=== PATIENT | female | born 1960 | race Two or more races ===

== ENCOUNTER 2018-02-28 18:36 | Inpatient (IN) | payer OTHER ==
[~2018-02-28] VITALS: Ht 160 cm; Wt 68.9 kg
[2018-02-28] MEDS ORDERED: MORPHINE SULFATE 4 MG/ML CPJ (NOT FOR IM USE) IV STA (19:21)
[2018-02-28] MEDS ORDERED: ONDANSETRON HCL 4MG/2ML VIAL IV STA (19:21)
[2018-02-28] MEDS ORDERED: SODIUM CHLORIDE 0.9% 1000ML BAG (SEPSIS BOLUS) IV ONE (19:30)
[2018-02-28] MEDS ORDERED: PIPERACILLIN/TAZ 3.375G PREMIX 50 ML IV ONE (19:30)
[2018-02-28] MEDS ORDERED: VANCOMYCIN 1 G PREMIX 200 ML IV ONE (19:30)
[2018-02-28 19:49] LABS: BASOPHILS % 0.5 % (0.0-2.0); EOSINOPHILS % 1.9 % (0.0-5.0); HEMATOCRIT. 25.5 % (36.0-48.0); HEMOGLOBIN. 8.3 g/dL (12.0-16.0); LYMPHOCYTES % 13.2 % (20.0-50.0); MEAN CORPUSCULAR HEMOGLOBIN 25.1 pg (28.0-32.0); MEAN CORPUSCULAR VOLUME 77.1 fL (81.0-99.0); MEAN PLATELET VOLUME 7.4 fl (7.4-10.4); MONOCYTES % 8.8 % (2.0-8.0); NEUTROPHILS % 75.6 % (40.0-76.0); PLATELET 298 x1000/uL (130-400)
[2018-02-28 19:55] LABS: CHLORIDE 101 mEq/L (98-107)
[2018-02-28 19:57] LABS: PROTHROMBIN TIME 10.7 sec (9.4-11.6)
[2018-02-28 21:19] LABS: CLARITY URINE CLEAR (CLEAR); COLOR URINE YELLOW (YELLOW); KETONES URINE NEGATIVE (NEGATIVE); LEUKOCYTE ESTERASE URINE TRACE (NEGATIVE); NITRITE URINE NEGATIVE (NEGATIVE); OCCULT BLOOD URINE NEGATIVE (NEGATIVE); PROTEIN URINE NEGATIVE (NEGATIVE); SPECIFIC GRAVITY URINE 1.015 (1.005-1.030); UROBILINOGEN URINE 0.2 E.U./dL (0.2-1.0)
[2018-03-01] VITALS (7 sets, daily range): BP systolic 119–138; BP diastolic 54–66
[2018-03-01] MEDS ORDERED: CEPH500C2 PO (01:37)
[2018-03-01] MEDS ORDERED: FURO-152 MT (01:37)
[2018-03-01] MEDS ORDERED: GLIP10TA10 MT (01:37)
[2018-03-01] MEDS ORDERED: HYDROCODONE/ACETAMINOPHEN 5/325MG TABLET PO PRN (05:15)
[2018-03-01] MEDS ORDERED: ACETAMINOPHEN 325MG TABLET PO PRN (05:15)
[2018-03-01] MEDS ORDERED: DEXTROSE 50% WATER 50ML SYRINGE IV PRN (05:15)
[2018-03-01] MEDS: PIPERACILLIN/TAZ 3.375G PREMIX 50 ML IV SCH ×3 (06:09→18:14)
[2018-03-01] MEDS: BLOOD SUGAR DIAGNOSTIC STRIP TEST SCH ×4 (06:34→20:56)
[2018-03-01] MEDS: INSULIN LISPRO 100 UNITS/ML SUBCUT SCH ×4 (06:56→21:24)
[2018-03-01] MEDS: FUROSEMIDE 40MG TABLET PO SCH (08:57)
[2018-03-01] MEDS: GLIPIZIDE 10MG TABLET PO SCH ×2 (08:57→18:14)
[2018-03-01] MEDS: ENOXAPARIN 40MG/0.4ML SYR SUBCUT SCH (08:58)
[2018-03-01] MEDS ORDERED: VANCOMYCIN 750 MG PREMIX 150 ML IV SCH (10:00)
[2018-03-01] MEDS: VANCOMYCIN 750 MG PREMIX 150 ML IV SCH (20:46)
[2018-03-02] VITALS: BP 113/54
[2018-03-02] MEDS: PIPERACILLIN/TAZ 3.375G PREMIX 50 ML IV SCH ×3 (00:06→11:53)
[2018-03-02 04:10] VITALS: BP 118/42
[2018-03-02 06:18] LABS: BASOPHILS % 0.6 % (0.0-2.0); EOSINOPHILS % 4.8 % (0.0-5.0); HEMATOCRIT. 25.9 % (36.0-48.0); HEMOGLOBIN. 8.5 g/dL (12.0-16.0); LYMPHOCYTES % 23.6 % (20.0-50.0); MEAN CORPUSCULAR HEMOGLOBIN 25.2 pg (28.0-32.0); MEAN CORPUSCULAR VOLUME 76.8 fL (81.0-99.0); MEAN PLATELET VOLUME 7.3 fl (7.4-10.4); MONOCYTES % 9.5 % (2.0-8.0); NEUTROPHILS % 61.5 % (40.0-76.0); PLATELET 366 x1000/uL (130-400); RED BLOOD CELL COUNT 3.37 mill/uL (4.2-5.4); RED CELL DISTRIBUTION WIDTH 18.7 % (11.6-14.6)
[2018-03-02] MEDS: INSULIN LISPRO 100 UNITS/ML SUBCUT SCH ×2 (06:56→12:50)
[2018-03-02] MEDS: BLOOD SUGAR DIAGNOSTIC STRIP TEST SCH ×2 (06:56→12:15)
[2018-03-02 08:00] VITALS: BP 129/66
[2018-03-02] MEDS: GLIPIZIDE 10MG TABLET PO SCH (08:54)
[2018-03-02] MEDS: VANCOMYCIN 750 MG PREMIX 150 ML IV SCH (08:55)
[2018-03-02] MEDS: ENOXAPARIN 40MG/0.4ML SYR SUBCUT SCH (08:55)
[2018-03-02] MEDS: FUROSEMIDE 40MG TABLET PO SCH (09:05)
[2018-03-02 12:00] VITALS: BP 130/85
[2018-03-02 12:45] VITALS: BP 134/46
== END 2018-03-02 13:26 | disposition home or self-care (01) | DRG 720 ==
LOC: ER 18:36 → 6EST 22:14 → EDBEDREQTM 22:19 → EDBEDREQ 22:19 → ENRESERV 22:49
PROVIDERS: ADMIT Internal Medicine; ATTEND Internal Medicine
DX: A41.9 Sepsis, unspecified organism (principal); E43 Unspecified severe protein-calorie malnutrition; E11.51 Type 2 diabetes mellitus with diabetic peripheral angiopathy without gangrene; L03.115 Cellulitis of right lower limb; I10 Essential (primary) hypertension; E86.0 Dehydration; L03.116 Cellulitis of left lower limb
CPT/HCPCS: 36415; 71045; 80048; 80053; 80202; 81003; 82962; 83605; 85025; 85610; 85730; 86850; 86900; 87040; 87086; 93005; 93970; 96365; 96366; 96367; 96375; 97161; 99285; J1650; J1815; J2270; J2405; J2543; J3370; J7030; J7050